=== PATIENT | male | born 1960 | race Caucasian/White ===

== ENCOUNTER 2021-11-16 12:21 | Emergency (ER) | payer BC, MEDICARE ==
[~2021-11-16] VITALS: Ht 180.3 cm; Wt 120.5 kg
[2021-11-16] MEDS ORDERED: DOXY100C3 (12:47)
[2021-11-16] MEDS ORDERED: PANT40TA29 (12:47)
[2021-11-16] MEDS ORDERED: AMLO1TAB25 (12:47)
[2021-11-16] MEDS ORDERED: PRED10TA2 (12:47)
[2021-11-16] MEDS ORDERED: LISI20TA33 (12:47)
[2021-11-16] MEDS ORDERED: NORCO, ANEXSIA 5/325MG TABLET (HYDROcodone/ACETAMINOPHEN) PO ONE (13:20)
[2021-11-16] MEDS ORDERED: HYDR-3713 PO (14:19)
[2021-11-16 14:32] VITALS: BP 185/100
== END 2021-11-16 14:33 | disposition home or self-care (01) ==
LOC: M ED 12:21
DX: M25.522 Pain in left elbow (principal); M25.422 Effusion, left elbow; V86.95XA Unspecified occupant of 3- or 4- wheeled all-terrain vehicle (ATV) injured in nontraffic accident, initial encounter; M25.722 Osteophyte, left elbow; Z79.899 Other long term (current) drug therapy

== ENCOUNTER 2023-10-08 11:27 | Emergency (ER) | payer MEDICARE ==
[~2023-10-08] VITALS: Ht 182.9 cm; Wt 115.1 kg
[~2023-10-08 11:27] MED LIST: AMLO1TAB25; DOXY100C3; HYDR-3713 PO; LISI20TA33; PANT40TA29; PRED10TA2
[2023-10-08 13:34] LABS: HEMATOCRIT 41.6 % (42.0-52.0); HEMOGLOBIN 14.3 g/dl (13.5-17.5); MEAN CORPUSCULAR HEMOGLOBIN 31.8 pg (27.0-33.0); MEAN CORPUSCULAR HGB CONC 34.4 g/dl (32.0-36.5); MEAN CORPUSCULAR VOLUME 92.7 fl (80.0-96.0); PLATELET COUNT, AUTOMATED 378 10^3/uL (150-450); RED BLOOD COUNT 4.49 10^6/uL (4.30-6.10); WHITE BLOOD COUNT 10.7 10^3/uL (4.0-10.0)
[2023-10-08 13:39] LABS: ERYTHROCYTE SEDIMENTATION RATE 35 mm/hr (0-20)
[2023-10-08 15:05] VITALS: BP 173/91; TEMP 98.2; O2SAT 100
== END 2023-10-08 15:07 | disposition home or self-care (01) ==
LOC: M ED 11:27
DX: M79.652 Pain in left thigh (principal); M79.662 Pain in left lower leg; Z96.652 Presence of left artificial knee joint; I10 Essential (primary) hypertension; E78.5 Hyperlipidemia, unspecified; Z79.899 Other long term (current) drug therapy; Z88.1 Allergy status to other antibiotic agents

== ENCOUNTER 2024-01-06 11:05 | Emergency (ER) | payer MEDICARE ==
[~2024-01-06] VITALS: Ht 180.3 cm; Wt 119.4 kg
[2024-01-06] MEDS ORDERED: FAMO40TA3 PO (11:35)
[2024-01-06 17:38] VITALS: BP 154/84; TEMP 97.9; O2SAT 95
== END 2024-01-06 17:40 | disposition home or self-care (01) ==
LOC: M ED 11:05
DX: S83.92XA Sprain of unspecified site of left knee, initial encounter (principal); S96.912A Strain of unspecified muscle and tendon at ankle and foot level, left foot, initial encounter; Y92.019 Unspecified place in single-family (private) house as the place of occurrence of the external cause; Y93.9 Activity, unspecified; Y99.9 Unspecified external cause status; W19.XXXA Unspecified fall, initial encounter; R55 Syncope and collapse; I10 Essential (primary) hypertension; Z88.8 Allergy status to other drugs, medicaments and biological substances; Z79.1 Long term (current) use of non-steroidal anti-inflammatories (NSAID); Z79.899 Other long term (current) drug therapy

== ENCOUNTER → 2024-12-19 | Outpatient (REF) | payer MEDICARE ==
[~2024-12-19] MED LIST changes: +FAMO40TA3 PO
[2024-12-19 18:34] LABS: APPEARANCE, URINE HAZY (CLEAR); BACTERIA, URINE AUTO NEGATIVE (NEGATIVE); BILIRUBIN, URINE AUTO NEGATIVE (NEGATIVE); BLOOD, URINE BLOOD 1+ (NEGATIVE); COLOR, URINE YELLOW (YELLOW); GLUCOSE, URINE (UA) AUTO NEGATIVE (NEGATIVE); KETONE, URINE AUTO NEGATIVE (NEGATIVE); LEUKOCYTE ESTERASE, URINE AUTO NEGATIVE (NEGATIVE); MUCUS, URINE SMALL (NEGATIVE); NITRITE, URINE AUTO NEGATIVE (NEGATIVE); PROTEIN, URINE AUTO 2+ mg/dL (NEGATIVE); RBC, URINE AUTO 4 /HPF (0-3); SPECIFIC GRAVITY URINE AUTO 1.021 (1.002-1.035); SQUAMOUS EPITHELIAL CELL UR AU 0 /HPF (0-6); UROBILINOGEN, URINE AUTO 0.2 mg/dL (0.0-2.0); WBC, URINE AUTO 2 /HPF (0-3)
[2024-12-19 18:41] LABS: BASO # 0.1 10^3/uL (0.0-0.2); BASO % 0.9 % (0.0-1.0); EOS # 0.1 10^3/uL (0.0-0.5); EOS % 1.6 % (0.0-3.0); HEMATOCRIT 47.9 % (42.0-52.0); HEMOGLOBIN 16.4 g/dl (13.5-17.5); LYMPH # 1.9 10^3/uL (1.5-5.0); LYMPH % 24.4 % (24.0-44.0); MEAN CORPUSCULAR HEMOGLOBIN 31.7 pg (27.0-33.0); MEAN CORPUSCULAR HGB CONC 34.2 g/dl (32.0-36.5); MEAN CORPUSCULAR VOLUME 92.5 fl (80.0-96.0); MONO # 0.8 10^3/uL (0.0-0.8); MONO % 10.5 % (2.0-8.0); NEUTROPHILS # 4.9 10^3/uL (1.5-8.5); NEUTROPHILS % 62.3 % (36.0-66.0); PLATELET COUNT, AUTOMATED 262 10^3/uL (150-450); RED BLOOD COUNT 5.18 10^6/uL (4.30-6.10); WHITE BLOOD COUNT 7.9 10^3/uL (4.0-10.0)
[2024-12-19 18:57] LABS: ERYTHROCYTE SEDIMENTATION RATE 12 mm/hr (0-20)
[2024-12-19 19:01] LABS: TOTAL PROTEIN,RANDOM URINE 94.4 MG/DL (0.0-14.0)
[2024-12-19 19:06] LABS: CREATININE,RANDOM URINE 205.6 MG/DL
[2024-12-19 19:07] LABS: C REACTIVE PROTEIN QUANTITATIV < 0.50 MG/DL (<1.0)
[2024-12-19 19:08] LABS: ALBUMIN 4.1 G/DL (3.2-5.2); ALKALINE PHOSPHATASE 132 U/L (40-129); ALT/SGPT 39 U/L (7.0-40); AST/SGOT 28 U/L (<34); BILIRUBIN,TOTAL 0.8 MG/DL (0.3-1.2); BLOOD UREA NITROGEN 14 MG/DL (9-23); CALCIUM LEVEL 9.5 MG/DL (8.3-10.6); CARBON DIOXIDE LEVEL 25 MMOL/L (20-31); CHLORIDE LEVEL 106 MMOL/L (98-107); COMPLEMENT C3 142.6 MG/DL (90.0-170.0); COMPLEMENT C4 18.5 MG/DL (12-36); CREATININE FOR GFR 0.93 MG/DL (0.70-1.30); GLOMERULAR FILTRATION RATE > 60.0 (>49); GLUCOSE, FASTING 91 MG/DL (74-106); POTASSIUM SERUM 4.2 MMOL/L (3.5-5.1); SODIUM LEVEL 141 MMOL/L (136-145); TOTAL PROTEIN 7.3 G/DL (5.7-8.2)
[2024-12-23 22:53] LABS: COMPLEMENT TOTAL (CH50) 61 U/mL (31-60)
== END ==
LOC: M SFHCRHEU 14:48
PROVIDERS: ATTEND Internal Medicine Rheumatology
DX: R76.8 Other specified abnormal immunological findings in serum (principal); M25.50 Pain in unspecified joint; R60.0 Localized edema

== ENCOUNTER → 2025-07-17 | Outpatient (REF) | payer MEDICARE ==
[2025-07-17 17:31] LABS: APPEARANCE, URINE CLEAR (CLEAR); BACTERIA, URINE AUTO NEGATIVE (NEGATIVE); BILIRUBIN, URINE AUTO NEGATIVE (NEGATIVE); BLOOD, URINE BLOOD 1+ (NEGATIVE); GLUCOSE, URINE (UA) AUTO NEGATIVE (NEGATIVE); KETONE, URINE AUTO NEGATIVE (NEGATIVE); LEUKOCYTE ESTERASE, URINE AUTO NEGATIVE (NEGATIVE); NITRITE, URINE AUTO NEGATIVE (NEGATIVE); PROTEIN, URINE AUTO 2+ mg/dL (NEGATIVE); RBC, URINE AUTO 1 /HPF (0-3); SPECIFIC GRAVITY URINE AUTO 1.019 (1.002-1.035); SQUAMOUS EPITHELIAL CELL UR AU 0 /HPF (0-6); UROBILINOGEN, URINE AUTO 0.2 mg/dL (0.0-2.0); WBC, URINE AUTO 0 /HPF (0-3)
[2025-07-17 18:02] LABS: TOTAL PROTEIN,RANDOM URINE 77.8 MG/DL (0.0-14.0)
== END ==
LOC: M SFHCRHEU 15:47
PROVIDERS: ATTEND Internal Medicine Rheumatology
DX: R80.8 Other proteinuria (principal)